=== PATIENT | male | born 1945 | race Caucasian/White ===

== ENCOUNTER → 2021-11-27 15:12 | Outpatient (REF) | payer OTHER, SELFPAY | LOC: ANHLAB 15:12 | PROVIDERS: PCP Family Medicine; Visit Provider Nurse Practitioner | DX: C44.329 Squamous cell carcinoma of skin of other parts of face (principal) | CPT/HCPCS: 88305 ==

== ENCOUNTER → 2022-01-28 08:20 | Outpatient (REF) | payer OTHER, SELFPAY | LOC: ANHLAB 08:20 | PROVIDERS: PCP Family Medicine; Visit Provider Nurse Practitioner | DX: C44.329 Squamous cell carcinoma of skin of other parts of face (principal) | CPT/HCPCS: 88305; 88331 ==

== ENCOUNTER 2022-12-05 09:00 | Outpatient (NON) | payer MEDICARE, OTHER, SELFPAY | END 2022-12-05 09:01 | disposition home or self-care (01) | LOC: ANHLAB 12-06 12:41 | PROVIDERS: PCP Family Medicine; Visit Provider Nurse Practitioner | DX: C44.319 Basal cell carcinoma of skin of other parts of face (principal) | CPT/HCPCS: 88305 ==

== ENCOUNTER 2023-04-17 07:15 | Outpatient (RCR) | payer MEDICARE, OTHER, SELFPAY ==
[2023-01-17 08:57] VITALS: PULSE 100
== END 2023-04-17 10:36 | disposition home or self-care (01) ==
LOC: ANHCPREHAB 07:15
PROVIDERS: PCP Family Medicine
DX: I25.2 Old myocardial infarction (principal); Z95.5 Presence of coronary angioplasty implant and graft
CPT/HCPCS: 93798